=== PATIENT | female | born 1955 | race Two or more races ===

== ENCOUNTER 2018-05-03 13:59 | Emergency (ER) | payer SELFPAY ==
[2018-05-03 14:34] VITALS: BMI 26.6
--- NOTE | 2018-05-03 14:55 | ED PDOC ---
Arrival/HPI - General Chief Complaint: Medical Clearance Time Seen by Provider: 05/03/18 14:20 Historian: Patient, Private Wealth Advisor - History of Present Illness Time/Duration: Prior to Arrival Associated Symptoms (Text): 05/03/18 14:50 Patient was found outside walking by the police who called an ambulance and the patient was brought to the emergency department. She speaks no Qatari at all. 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 She has no complaints. There is no pain. No chest pain or dyspnea. No vomiting or diarrhea. Past Medical History - Infectious Disease Hx of Infectious Diseases: None - Psychiatric Hx Substance Use: No - Surgical History Other/Comment: neck surgery @ 17 years old - Anesthesia Hx Anesthesia: Yes Hx Anesthesia Reactions: No Hx Malignant Hyperthermia: No Family/Social History - Physician Review Nursing Documentation Reviewed: Yes Family/Social History: Unknown Family HX Smoking Status: Never Smoked Hx Alcohol Use: No Hx Substance Use: No Allergies/Home Meds Allergies/Adverse Reactions: Allergies No Known Allergies Allergy (Verified 05/03/18 14:34) Home Medications: Home Meds Medication Instructions Recorded Confirmed No Known Home Med 05/03/18 05/03/18 Review of Systems - Physician Review All systems were reviewed & negative as marked: Yes Physical Exam Temperature: Afebrile Blood Pressure: Normal Pulse: Regular Respiratory Rate: Normal Appearance: Positive for: Well-Appearing, Non-Toxic, Comfortable Pain Distress: None - Systems Exam Head: Present: Atraumatic, Normocephalic Respiratory/Chest: Present: Clear to Auscultation, Good Air Exchange. No: Respiratory Distress, Accessory Muscle Use Cardiovascular: Present: Regular Rate and Rhythm, Normal S1, S2. No: Murmurs Disposition/Present on Arrival - Present on Arrival Any Indicators Present on Arrival: No History of DVT/PE: No History of Uncontrolled Diabetes: No Urinary Catheter: No History of Decub. Ulcer: No History Surgical Site Infection Following: None - Disposition Have Diagnosis and Disposition been Completed?: Yes Diagnosis: Weakness Disposition: HOME/ ROUTINE Disposition Time: 15:11 Patient Plan: Discharge Condition: GOOD Discharge Instructions (ExitCare): Weakness (ED) Forms: zintin (Qatari)
[2018-05-03 15:02] VITALS: BP 134/73; PULSE 88; RESP 18; TEMP 98.4; O2SAT 98
== END 2018-05-03 15:11 | disposition home or self-care (01) ==
LOC: ED 13:59
DX: R53.1 Weakness (principal)